=== PATIENT | female | born 1975 | race Caucasian/White ===

== ENCOUNTER 2017-04-02 19:34 | Emergency (ER) | payer MEDICAID, OTHER ==
[2017-04-02 19:49] VITALS: BP 160/113
--- NOTE | 2017-04-02 20:37 | EDM.PDOC ---
ED HPI GENERAL MEDICAL PROBLEM - General Chief Complaint: Fever Stated Complaint: FEVER / COUGH Time Seen by Provider: 04/02/17 20:14 Source of Information: Reports: Patient, RN Notes Reviewed History Limitations: Reports: No Limitations - History of Present Illness INITIAL COMMENTS - FREE TEXT/NARRATIVE: Brought by her catherine Chief complaint Cough and fever History of present illness 42-year-old female, mother of 2 children and also works full-time job, started developing illness 2 days ago with cough fever aches and some chills. Fever would come down with ibuprofen and acetaminophen which she is taking regularly. She is worried because the fever had been 48 hours and was a safe distal take it and did she have pneumonia. About a week she's had some dental pain left lower teeth. She does have one tooth that has a damaged crown and the tooth immediately behind this is quite painful. She has no upcoming dental appointment. She was seen for this in urgent care in [place] 4 days ago and started on amoxicillin. She also has some ache in the left ear. 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[employer]IAN History: Reports: Other OB/BYN History: blood clot in ovary Dermatologic History: Reports: Eczema - Infectious Disease History Infectious Disease History: Reports: Chicken Pox - Past Surgical History HEENT Surgical History: Reports: Oral Surgery GI Surgical History: Reports: Appendectomy, Other (See Below) Other GI Surgeries/Procedures: Hemorroidectomy Social & Family History - Tobacco Use Smoking Status *Q: Never Smoker - Caffeine Use Caffeine Use: Reports: Coffee - Recreational Drug Use Recreational Drug Use: No ED ROS GENERAL - Review of Systems Review Of Systems: See Below Constitutional: Reports: Fever, Chills, Diaphoresis HEENT: Reports: Dental Pain, Ear Pain. Denies: Ear Discharge (No hearing loss) , Eye Discharge, Eye Pain, Rhinitis, Throat Pain, Vision Change Respiratory: Reports: Cough. Denies: Shortness of Breath, Pleuritic Chest Pain Cardiovascular: Denies: Chest Pain, Lightheadedness, Palpitations GI/Abdominal: Reports: Decreased Appetite. Denies: Abdominal Pain, Diarrhea, Nausea, Vomiting : Reports: No Symptoms Musculoskeletal: Reports: Muscle Pain Skin: Reports: No Symptoms Neurological: Reports: Headache. Denies: Numbness, Paresthesia, Trouble Speaking, Gait Disturbance Hematologic/Lymphatic: Reports: No Symptoms Immunologic: Reports: No Symptoms ED EXAM, GENERAL - Physical Exam Exam: See Below Exam Limited By: No Limitations General Appearance: Alert, Mild Distress, Other (Currently afebrile, very communicative, appears well, elevated blood pressure but other vital signs normal) Eye Exam: Bilateral Eye: EOMI, Normal Inspection Ears: Normal External Exam, Normal Canal, Hearing Grossly Normal, Normal TMs Nose: Normal Inspection, Normal Mucosa Throat/Mouth: Normal Inspection, Normal Lips, Normal Oropharynx, Normal Voice, Other (Fracture of the premolar left lower teeth and the second premolar is tender to palpation, no visible abscess, no facial swelling) Head: Atraumatic Neck: Normal Inspection, Supple. No: Lymphadenopathy (R), Lymphadenopathy (L) Respiratory/Chest: No Respiratory Distress, Lungs Clear, Normal Breath Sounds, No Accessory Muscle Use, Chest Non-Tender Cardiovascular: Normal Peripheral Pulses, Regular Rate, Rhythm Extremities: Normal Inspection, Non-Tender, No Pedal Edema Neurological: Alert, Oriented, Normal Cognition, No Motor/Sensory Deficits Psychiatric: Normal Affect, Normal Mood Skin Exam: Warm, Dry, Normal Color, No Rash Course - Vital Signs Last Recorded V/S: Last Vital Signs Temp 36.8 C 04/02/17 19:51 Pulse 95 04/02/17 19:51 Resp 16 04/02/17 19:51 BP 160/113 H 04/02/17 19:51 Pulse Ox 100 04/02/17 19:51 - Re-Assessments/Exams Free Text/Narrative Re-Assessment/Exam: 04/02/17 20:34 42-year-old female with cough and fever since 48 hours in the dental problem for the last week. Examination shows good air entry and saturation, fever is currently resolved. Symptoms consistent with influenza or influenza-like illness. She declined antiviral treatment and declined analgesics prescription. Follow-up with dentist Return to emergency if worsening Departure - Departure Time of Disposition: 20:35 Disposition: Home, Self-Care 01 Condition: Good Clinical Impression: Influenza-like illness, Dental infection - Discharge Information Instructions: Influenza, Adult, [id number], Dental Abscess Referrals: PCP,None [Primary Care Provider] - Forms: ED Department Discharge, ED Return to Work/School Form
== END 2017-04-02 20:47 | disposition home or self-care (01) ==
LOC: JP.ED 19:34
DX: J11.1 Influenza due to unidentified influenza virus with other respiratory manifestations (principal); K04.7 Periapical abscess without sinus; K03.81 Cracked tooth; Z88.1 Allergy status to other antibiotic agents
CPT/HCPCS: 99282

== ENCOUNTER 2018-10-22 06:53 | Day surgery (SDC) | payer MEDICAID ==
[2018-10-22] MEDS ORDERED: Povidone-Iodine 10% Soln 118.25 ML Bottle ONE (07:02)
[2018-10-22] MEDS ORDERED: Propofol 200 MG/20 ML SDV ONE ×2 (07:16→09:45)
[2018-10-22] MEDS ORDERED: Midazolam 1 MG/ML 2 ML SDV ONE ×2 (07:17→09:15)
[2018-10-22] MEDS ORDERED: fentaNYL 100 MCG/2 ML SDV ONE ×2 (07:17→10:20)
[2018-10-22] MEDS ORDERED: Nozin Nasal Sanitizer NASBOTH ONE (07:30)
[2018-10-22] MEDS: Lactated Ringers 1,000 ML IV SCH ×2 (08:01→13:32)
[2018-10-22] MEDS ORDERED: Clindamycin Phosphate 900 MG in Sodium Chloride 0.9% 100 ML IV ONE (08:30)
[2018-10-22] MEDS ORDERED: Lactated Ringers 1,000 ML ONE (09:20)
[2018-10-22] MEDS ORDERED: Bupivacaine 0.5% 50 ML MDV ONE (10:21)
[2018-10-22] MEDS ORDERED: Ketorolac 60 MG/2 ML SDV ONE (10:28)
[2018-10-22] MEDS ORDERED: Ondansetron 4 MG/2 ML SDV IVPUSH PRN (10:39)
[2018-10-22] MEDS ORDERED: Acetaminophen 325 MG Tab PO PRN (10:39)
[2018-10-22] MEDS ORDERED: Acetaminophen/HYDROcodone 325-5 MG Tab PO PRN (10:39)
[2018-10-22] MEDS ORDERED: Sodium Chloride 0.9% 1,000 ML IV SCH (10:45)
[2018-10-22] MEDS: Morphine 2 MG/ML Syringe IVPUSH PRN ×2 (11:24→22:02)
[2018-10-22] MEDS: Acetaminophen/oxyCODONE 325-5 MG Tab PO PRN (13:33)
[2018-10-22] MEDS: Clindamycin Phosphate 900 MG in Sodium Chloride 0.9% 100 ML IV SCH ×2 (14:47→22:00)
--- NOTE | 2018-10-22 15:56 | OR ---
DATE OF PROCEDURE: 10/22/2018 PREOPERATIVE DIAGNOSIS: Severe chondromalacia patella, left knee, early osteoarthritis. POSTOPERATIVE DIAGNOSIS: Severe chondromalacia patella, left knee, early osteoarthritis. PROCEDURE: Patellofemoral arthroplasty, left knee using Viola PFJ components with a size 1 trochlear component and a 32 mm patella. ANESTHESIA: Spinal with sedation. INDICATIONS: Sara is a 43-year-old female with a history of bilateral anterior knee pain, which has been getting progressively worse over the past year. She has significant grinding, catching, locking, and giving way. She has failed conservative treatment. X-ray reveals well preserved femoral tibial space as well as intact meniscus and articular cartilage on MRI. Patellofemoral joint shows thinning of the trochlear groove and significant chondromalacia of the patella. She now presents for patellofemoral arthroplasty. Risks, benefits, and potential complications of the procedure were discussed. DESCRIPTION OF PROCEDURE: After adequate anesthesia was obtained, the patient was placed supine with a tourniquet about the left upper leg. Leg was prepped and draped in a sterile fashion. Leg was exsanguinated and tourniquet inflated to 300 mmHg pressure. Longitudinal incision was made over the knee from the tibial tubercle to just above the superior pole of the patella. Hemostasis was obtained with electrocautery. A medial parapatellar arthrotomy was performed. Patella is partially everted revealing significant chondromalacia grade 4 with loose articular flaps throughout the dome of the patella and the major weightbearing surfaces. Oscillating saw was used to resect the posterior patella. Trochlear groove showed softening without full-thickness loss. Femoral condyle showed intact articular cartilage. Intramedullary canal was drilled and the intramedullary guide was then placed. This was pinned in position and the anterior cut was made. Guide was removed and then a trochlea was sized to a #1 component. The #1 jig was secured and a router was then used to remove the articular cartilage and subchondral bone. A second guide was placed and the holes were drilled for the pegs. Trial component was then placed with excellent fit. Patella was drilled for a 32 mm component. A trial was placed and the knee was taken through range of motion. The patellar component centered very well and tracked nicely within the trochlea. Trials were removed. Knee was irrigated with a pulse lavage. Bone surfaces were dried and components were cemented in place. Excess cement was removed and components were held in compression as cement cured. Knee was irrigated and again taken through range of motion and patella found to track well within the groove of the trochlea. Final irrigation was completed. Capsule was then closed with 0 Vicryl in a combination of a running locking and intermittent sutures. Skin was closed with 2-0 Vicryl and a running 3-0 Monocryl. Steri-Strips were applied. Wound was infiltrated with 0.5% Marcaine and a sterile dressing was applied. The patient tolerated the procedure very well. There were no complications. She was taken from the operating room in stable condition. Brian Wyatt MD /[id number]
[2018-10-22] MEDS: traMADol 50 MG Tab PO PRN ×2 (19:30→20:13)
[2018-10-23] MEDS: Acetaminophen/oxyCODONE 325-5 MG Tab PO PRN ×5 (00:09→13:25)
[2018-10-23] MEDS: Morphine 2 MG/ML Syringe IVPUSH PRN (02:19)
[2018-10-23] MEDS: Clindamycin Phosphate 900 MG in Sodium Chloride 0.9% 100 ML IV SCH (05:29)
--- NOTE | 2018-10-23 09:34 | CRLCR ---
INDICATION: Left unicompartmental knee replacement 2 views. COMPARISON: None. FINDINGS: Unicompartmental arthroplasty along the femoral trochlear component of the patellofemoral compartment. Soft tissue gas reflects recent surgery. No acute fracture or dislocation. Lateral compartment osteophytes. IMPRESSION: Unicompartmental arthroplasty as above. Dictated by Rangel Gasca MD @ Oct 23 2018 9:31AM Signed by Dr. Rangel Gasca @ Oct 23 2018 9:32AM
[2018-10-23] MEDS ORDERED: Ketorolac 30 MG/ML SDV IVPUSH ONE (09:45)
[2018-10-23 10:39] VITALS: BP 164/99; PULSE 70
[2018-10-23] MEDS ORDERED: Ketorolac 10 MG Tab PO PRN (14:00)
== END 2018-10-23 14:45 | disposition home or self-care (01) ==
LOC: JP.SDS 06:53 → JP.MS 10:39 → JP.SDS 10-23 14:45
PROVIDERS: ATTEND Specialist
DX: M17.12 Unilateral primary osteoarthritis, left knee (principal); M22.42 Chondromalacia patellae, left knee; M25.561 Pain in right knee; R03.0 Elevated blood-pressure reading, without diagnosis of hypertension; E66.9 Obesity, unspecified; Z68.34 Body mass index [BMI] 34.0-34.9, adult; Z88.0 Allergy status to penicillin; Z86.718 Personal history of other venous thrombosis and embolism; Z87.891 Personal history of nicotine dependence
CPT/HCPCS: 27442; 36415; 73560; 80048; 85027; 97110; 97161; 97530; 97535; A9270; C1713; C1776; J1885; J2250; J2270; J2405; J2704; J3010; J3490; J7030; J7120

== ENCOUNTER 2019-02-21 10:42 | Emergency (ER) | payer MEDICAID ==
[2019-02-21] MEDS ORDERED: Sodium Chloride 0.9% 1,000 ML IV SCH (11:15)
--- NOTE | 2019-02-21 11:29 | EDM.PDOC ---
ED HPI GENERAL MEDICAL PROBLEM - General Chief Complaint: Fever Stated Complaint: FEVER Time Seen by Provider: 02/21/19 11:15 Source of Information: Reports: Patient, Family History Limitations: Reports: No Limitations - History of Present Illness INITIAL COMMENTS - FREE TEXT/NARRATIVE: 43-year-old female with a temperature of 104 at home, red and itchy left knee. She has had significant swelling and erythema of the knee but it seems worse over the last 24 hours. Onset: Unknown/Unsure Location: Reports: Lower Extremity, Left Associated Symptoms: Reports: Fever/Chills, Other (Mild rhinitis, no cough) Left Knee Pain Score (Numeric/FACES): 4 - Related Data Allergies Allergy/AdvReac Type Severity Reaction Status Date / Time amoxicillin trihydrate Allergy Stomach Verified 02/21/19 11:05 [From Augmentin] Upset potassium clavulanate Allergy Stomach Verified 02/21/19 11:05 [From Augmentin] Upset Home Meds: Home Meds Triamcinolone Acetonide [Triamcinolone Acetonide 0.1% Crm] 15 gm TOP ASDIRECTED PRN 04/02/17 [History] Acetaminophen [Tylenol] 1,000 mg PO Q4H PRN 11/06/18 [History] Aspirin [Adult Low Dose Aspirin EC] 81 mg PO DAILY 02/21/19 [History] oxyCODONE 5 mg PO Q6H PRN 02/21/19 [History] Past Medical History HEENT History: Reports: Impaired Vision Cardiovascular History: Reports: Blood Clots/VTE/DVT Respiratory History: Reports: Pneumonia, Recurrent Gastrointestinal History: Reports: Hemorrhoids Genitourinary History: Reports: None DRILL HAND History: Reports: , Other (See Below) Other DRILL HAND History: blood clot in ovary Musculoskeletal History: Reports: Back Pain, Chronic, Other (See Below) Other Musculoskeletal History: s/p L partial knee 10/22/18 Neurological History: Reports: None Psychiatric History: Reports: None Endocrine/Metabolic History: Reports: Obesity/BMI 30+ Hematologic History: Reports: Blood Transfusion(s) Immunologic History: Reports: None Oncologic (Cancer) History: Reports: None Dermatologic History: Reports: Eczema - Infectious Disease History Infectious Disease History: Reports: Chicken Pox - Past Surgical History Head Surgeries/Procedures: Reports: None HEENT Surgical History: Reports: Adenoidectomy, Oral Surgery GI Surgical History: Reports: Appendectomy, Other (See Below) Other GI Surgeries/Procedures: Hemorroidectomy Female Surgical History: Reports: Other (See Below) Other Female Surgeries/Procedures: bilat ovarian tubes removed Musculoskeletal Surgical History: Reports: Arthroscopic Knee, Knee Replacement Dermatological Surgical History: Reports: Skin Biopsy Social & Family History - Tobacco Use Smoking Status *Q: Former Smoker Used Tobacco, but Quit: Yes Month/Year Tobacco Last Used: 7 years - Caffeine Use Caffeine Use: Reports: Coffee - Alcohol Use Days Per Week of Alcohol Use: 7 Number of Drinks Per Day: 5 Total Drinks Per Week: 35 - Recreational Drug Use Recreational Drug Use: No ED ROS GENERAL - Review of Systems Review Of Systems: See Below Constitutional: Reports: Fever, Chills, Malaise HEENT: Reports: Rhinitis Respiratory: Denies: Shortness of Breath, Cough Cardiovascular: Denies: Chest Pain GI/Abdominal: Denies: Nausea, Vomiting Musculoskeletal: Reports: Other (Left knee has a longitudinal healed incision from her surgery 1 month ago, there is surrounding erythema and papular lesions. It is very warm to touch. There is an effusion but it does not seem tender to palpation.) Skin: Reports: Other (Patient has had an ongoing erythema of the left knee from the adhesive from dressings) Neurological: Reports: Other (Tremors and chills at home) ED EXAM, SEPSIS - Physical Exam Exam: See Below Exam Limited By: No Limitations General Appearance: Alert, No Apparent Distress Head: Atraumatic Respiratory/Chest: No Respiratory Distress, Lungs Clear Cardiovascular: Regular Rate, Rhythm, Tachycardia GI/Abdominal Exam: Non-Tender Extremities: Other (Exam is otherwise limited to the lower extremities. The left knee is larger than the right, there is a longitudinal well-healed anterior incision and surrounding erythema with papular lesions especially proximally on the left knee. It is very warm to touch where there is erythema. There is not significant pain with palpation of the knee or with knee movement. There is a lot of swelling around the knee but it feels more exterior to the knee joint and cellulitic than intra-articular) Course - Vital Signs Last Recorded V/S: Last Vital Signs Temp 101.4 F H 02/21/19 13:59 Pulse 121 H 02/21/19 13:59 Resp 22 H 02/21/19 13:20 BP 160/101 H 02/21/19 13:20 Pulse Ox 99 02/21/19 13:59 - Orders/Labs/Meds Orders: Active Orders 24 hr Category Date Time Status CULTURE BLOOD [BC] Urgent Lab 02/21/19 11:15 Received CULTURE BLOOD [BC] Urgent Lab 02/21/19 11:15 Received CULTURE BODY FLUID + SMEAR [] Stat Lab 02/21/19 12:42 Results CULTURE STREP A CONFIRMATION [] Routine Lab 02/21/19 11:28 Results STREP SCRN A RAPID W CULT CONF [] Routine Lab 02/21/19 11:28 Results Blood Culture x2 Reflex Set [OM.PC] Urgent Oth 02/21/19 11:08 Ordered Labs: Laboratory Tests 02/21/19 02/21/19 02/21/19 Range/Units 11:15 11:15 11:28 WBC 14.3 H (4.5-11.0) K/uL RBC 4.50 (3.30-5.50) M/uL Hgb 13.5 (12.0-15.0) g/dL Hct 40.4 (36.0-48.0) % MCV 90 (80-98) fL MCH 30 (27-31) pg MCHC 33 (32-36) % Plt Count 354 (150-400) K/uL Neut % (Auto) 88 H (36-66) % Lymph % (Auto) 6 L (24-44) % Stafford % (Auto) 5 (2-6) % Eos % (Auto) 0 L (2-4) % Baso % (Auto) 0 (0-1) % Sodium 133 L (140-148) mmol/L Potassium 3.8 (3.6-5.2) mmol/L Chloride 97 L (100-108) mmol/L Carbon Dioxide 24 (21-32) mmol/L Anion Gap 15.8 H (5.0-14.0) mmol/L BUN 4 L D (7-18) mg/dL Creatinine 1.0 (0.6-1.0) mg/dL Est Cr Clr Drug Dosing 61.24 mL/min Estimated GFR (MDRD) > 60 (>60) Glucose 113 H (74-106) mg/dL Calcium 9.3 (8.5-10.1) mg/dL Total Bilirubin 0.9 (0.2-1.0) mg/dL AST 16 (15-37) U/L ALT 32 (12-78) U/L Alkaline Phosphatase 107 (46-116) U/L C-Reactive Protein 6.65 H (0.0-0.3) mg/dL Total Protein 8.1 (6.4-8.2) g/dL Albumin 3.8 (3.4-5.0) g/dL Globulin 4.3 H (2.3-3.5) g/dL Albumin/Globulin Ratio 0.9 L (1.2-2.2) Urine Color Yellow (YELLOW) Urine Appearance Slightly cloudy A (CLEAR) Urine pH 7.0 (5.0-8.0) Ur Specific Simpson 1.010 (1.008-1.030) Urine Protein Negative (NEGATIVE) mg/dL Urine Glucose (UA) Negative (NEGATIVE) mg/dL Urine Ketones Negative (NEGATIVE) mg/dL Urine Occult Blood Moderate H (NEGATIVE) Urine Nitrite Negative (NEGATIVE) Urine Bilirubin Negative (NEGATIVE) Urine Urobilinogen 0.2 (0.2-1.0) EU/dL Ur Leukocyte Esterase Negative (NEGATIVE) Urine RBC 5-10 H (0-5) Urine WBC Not seen (0-5) Ur Epithelial Cells Moderate Amorphous Sediment Few Urine Bacteria Many Urine Mucus Not seen Meds: Medications Discontinued Medications Generic Name Dose Route Start Last Admin Trade Name Freq PRN Reason Stop Dose Admin Sodium Chloride 1,000 mls @ 500 mls/hr 02/21/19 11:15 02/21/19 11:19 Normal Saline IV 500 mls/hr ASDIRECTED RON Administration Vancomycin HCl 1 gm/ Sodium 250 mls @ 150 mls/hr 02/21/19 11:09 02/21/19 11: 20 Chloride IV 02/21/19 12:48 150 mls/hr ONETIME ONE Administration Ketorolac Tromethamine 30 mg 02/21/19 13:15 02/21/19 13:19 Toradol IVPUSH 02/21/19 13:16 30 mg ONETIME ONE Administration Lidocaine HCl 5 ml 02/21/19 12:15 02/21/19 12:26 Xylocaine-Mpf 1% INJECT 02/21/19 12:16 5 ml ONETIME ONE Administration - Re-Assessments/Exams Free Text/Narrative Re-Assessment/Exam: 02/21/19 11:52 CBC, CMP, CRP and strep test along with UA were obtained. An IV was started and patient was bolused with 1 L of normal saline and 1 g of vancomycin. 02/21/19 13:05 Patient's white count is elevated at 14,300 and CRP is almost 7. Discussed the findings with her orthopedic surgeon and he asked if we could try to aspirate anything out of the knee. This was done under sterile conditions from the lateral aspect of the knee and only 1-1/2 cc of serosanguineous fluid was released. Again the swelling felt mostly exterior to the knee. Gram stain showed just very rare gram-positive cocci. This was discussed with orthopedics , and he was comfortable with the patient receiving treatment here with transfer to [facility] if needed. 02/21/19 13:58 After consultation with the hospitalist service, it was recommended she be transferred to [place]. Her will take her by private car, the IV will be left in place. Departure - Departure Time of Disposition: 15:00 Disposition: DC/Tfer to Other Clinical Impression: Cellulitis of knee, left - Discharge Information Instructions: Cellulitis, Adult, [id number] Referrals: Sandra Hunt DO [Primary Care Provider] - Forms: ED Department Discharge Care Plan Goals: Leave IV in place and go directly to [facility] to be admitted to the hospital for orthopedic evaluation and treatment for your left knee swelling and pain. - My Orders Last 24 Hours: My Active Orders 02/21/19 11:08 Blood Culture x2 Reflex Set [OM.PC] Urgent 02/21/19 11:15 CULTURE BLOOD [BC] Urgent CULTURE BLOOD [BC] Urgent 02/21/19 11:28 CULTURE STREP A CONFIRMATION [RM] Routine STREP SCRN A RAPID W CULT CONF [RM] Routine 02/21/19 12:42 CULTURE BODY FLUID + SMEAR [RM] Stat - Assessment/Plan Last 24 Hours: My Active Orders 02/21/19 11:08 Blood Culture x2 Reflex Set [OM.PC] Urgent 02/21/19 11:15 CULTURE BLOOD [BC] Urgent CULTURE BLOOD [BC] Urgent 02/21/19 11:28 CULTURE STREP A CONFIRMATION [RM] Routine STREP SCRN A RAPID W CULT CONF [RM] Routine 02/21/19 12:42 CULTURE BODY FLUID + SMEAR [RM] Stat
[2019-02-21] MEDS ORDERED: Ketorolac 30 MG/ML SDV IVPUSH ONE (13:15)
[2019-02-21 13:21] VITALS: BP 160/101
[2019-02-21 13:59] VITALS: PULSE 121
== END 2019-02-21 14:30 | disposition other institution (70) ==
LOC: JP.ED 10:42
DX: L03.116 Cellulitis of left lower limb (principal); E66.9 Obesity, unspecified; Z88.1 Allergy status to other antibiotic agents; Z68.35 Body mass index [BMI] 35.0-35.9, adult; Z79.82 Long term (current) use of aspirin; Z87.891 Personal history of nicotine dependence
CPT/HCPCS: 36415; 80053; 81001; 85025; 86140; 87040; 87070; 87077; 87081; 87205; 87880; 96365; 96366; 96375; 99284; J1885; J2001; J3370; J7030; J7050